=== PATIENT | female | born 1960 | race Caucasian/White ===

== ENCOUNTER 2021-05-07 15:22 | Emergency (ER) | payer OTHER, SELFPAY ==
[2021-05-07 15:35] VITALS: BP 148/62; PULSE 63; RESP 18; TEMP 36.9; O2SAT 100
[2021-05-07 15:41] VITALS: BP 148/62; PULSE 63; RESP 18; TEMP 36.9; O2SAT 100
--- NOTE | 2021-05-07 16:24 | ED.SKABFB ---
HPI - Skin/Abscess/Foreign Bdy General Chief complaint: Skin/Abscess/Foreign Body Stated complaint: Rash legs and starting up Time Seen by Provider: 05/07/21 16:24 Source: patient and RN notes reviewed Mode of arrival: ambulatory Limitations: no limitations History of Present Illness HPI narrative: 60-year-old female presents concern for rash. Reports a week ago she was gardening when she brushed up against a plant. Since then she has had a rash behind her knee that is started to spread. Reports that inflamed, raised and itchy. Reports she has been using an [id number] poison suzette treatment without relief. She denies swollen lips, tongue, trouble breathing. MD complaint: rash Related Data Home Medications Medication Instructions Recorded Confirmed losartan 50 mg PO DAILY 05/07/21 05/07/21 metformin 850 mg PO BID 05/07/21 05/07/21 metoprolol succinate 50 mg PO BID 05/07/21 05/07/21 simvastatin 40 mg PO HS 05/07/21 05/07/21 Allergies Allergy/AdvReac Type Severity Reaction Status Date / Time NKDA Allergy Mild Uncoded 07/09/05 09:19 Review of Systems Review of Systems: CONSTITUTIONAL: Denies malaise, chills, sweats, or fever. EYES: Denies redness, or discharge. ENT: Denies rhinorrhea, congestion, swollen lips, swollen tongue CARDIOVASCULAR: Denies chest pain, palpitations, or edema. RESPIRATORY: Denies cough or dyspnea. GASTROINTESTINAL: Denies abdominal pain, nausea, vomiting SKIN: Reports irritated, itchy rash behind the right knee that is spreading to the left leg and left arm MUSCULOSKELETAL: Denies joint pain or myalgia. NEUROLOGIC: Denies headache. All systems reviewed & are unremarkable except as noted in HPI and below PMFSH Comments At time of signature, agree with nursing past medical, surgical, social and family history. There is no relevant family history pertinent to the presenting complaint Exam Narrative: GENERAL: Well-appearing, well-nourished, and in no acute distress. HEAD: Normocephalic, atraumatic. EYES: PERRLA, conjunctivae clear, and EOMI. ENT: Mucous membranes moist. Oropharynx without edema, erythema or lesions. NECK: Supple. No lymphadenopathy CHEST: Clear to auscultation. No respiratory distress. HEART: Regular rate and rhythm. SKIN: Warm, dry. Patches of erythema and edema NEURO: Alert and oriented x3. PSYCH: Normal mood and affect Course Course Emergency Course: Patient is aware of diagnosis, understands and agrees to treatment plan. Anticipatory guidance given. Patient agrees to follow-up as directed and is aware of reasons to seek care at the emergency department. Portions of this record may have been created with voice recognition software Level of Care: Express Care Visit Vital Signs Vital signs: Vital Signs Temperature 98.5 F 05/07/21 15:35 Pulse Rate 63 05/07/21 15:35 Respiratory Rate 18 05/07/21 15:35 Blood Pressure 148/62 H 05/07/21 15:35 Pulse Oximetry 100 05/07/21 15:35 Temperature 98.5 F 05/07/21 15:41 Pulse Rate 63 05/07/21 15:41 Respiratory Rate 18 05/07/21 15:41 Blood Pressure 148/62 H 05/07/21 15:41 Pulse Oximetry 100 05/07/21 15:41 Reviewed. MDM - Skin/Abscess/Foreign Bdy MDM Narrative Medical decision making narrative: Does not appear at this time to be erythema multiforme, bullous, SJS, TEN; no evidence at this time to suggest RMSF, endocarditis or Lyme disease; patient looks well, nontoxic and is tolerating oral intake; no neurologic signs or symptoms; no headache, photophobia or neck pain; afebrile; appropriate for initial outpatient treatment; discussed the importance of follow-up, patient agrees; question, viral exanthema, contact dermatitis, allergic dermatitis, eczema, urticaria, shingles. No soft palate or uvula edema, no tongue, lip edema or other mucosal involvement, no respiratory compromise, no stridor, no wheezing, no wheezing, no history of syncope, no hypotension, no nausea, vomiting, or diarrhea. Instructe
== END 2021-05-07 16:36 | disposition home or self-care (01) ==
PROVIDERS: Emergency Provider Nurse Practitioner
DX: L24.7 Irritant contact dermatitis due to plants, except food (principal); E78.00 Pure hypercholesterolemia, unspecified; I10 Essential (primary) hypertension; Z90.89 Acquired absence of other organs
CPT/HCPCS: 99213; G0463